=== PATIENT | male | born 1960 | race Hispanic/Latino ===

== ENCOUNTER → 2020-11-13 | Outpatient (CLI) | payer OTHER ==
[~2020-11-13] MED LIST: COVID-19 VACC, MRNA(MODERNA)/PF 100 MCG/0.5 ML VIAL IM ONE
== END ==
LOC: VACCPMC 08:30
DX: Z23 Encounter for immunization (principal); Z20.822 Contact with and (suspected) exposure to COVID-19

== ENCOUNTER → 2020-12-13 | Outpatient (CLI) | payer OTHER | END | DRG 951 | LOC: VACCPMC 09:01 | DX: Z23 Encounter for immunization (principal); Z20.822 Contact with and (suspected) exposure to COVID-19 | CPT/HCPCS: 0012A; 91301 ==

== ENCOUNTER 2021-04-05 12:54 | Outpatient (RCR) | payer BC ==
[2021-04-12] MEDS ORDERED: MOTRIN200 MG PO (16:22)
[2021-04-12] MEDS ORDERED: LIPITOR20 MG PO (16:22)
[2021-04-13] MEDS ORDERED: HYDROCODON-ACE1 EA12 PO (10:46)
== END 2021-04-10 ==
LOC: PT 12:54
PROVIDERS: ATTEND Neurological Surgery
DX: M51.16 Intervertebral disc disorders with radiculopathy, lumbar region (principal)

== ENCOUNTER 2021-04-13 13:13 | Observation (INO) | payer BC ==
[2021-04-12 16:31] LABS: BASOPHILS # (AUTO) 0.1 (0.0-0.1); BASOPHILS % 0.8 % (0.0-1.0); EOSINOPHILS # (AUTO) 0.1 (0.0-0.4); EOSINOPHILS % 1.9 % (0.0-6.0); HEMATOCRIT 43.5 % (38.2-49.6); LYMPHOCYTES # (AUTO) 2.3 (1.0-3.2); LYMPHOCYTES % 31.3 % (18.0-39.1); MEAN CORPUSCULAR HEMOGLOBIN 32.3 pg (28-32); MEAN CORPUSCULAR HGB CONC 34.5 g/dL (31-35); MEAN CORPUSCULAR VOLUME 93.5 fL (81-99); MONOCYTES # (AUTO) 0.6 (0.2-0.8); MONOCYTES % 8.6 % (4.4-11.3); NEUTROPHILS # (AUTO) 4.2 (2.1-6.9); PLATELET COUNT 201 x10e3/uL (140-360); RED BLOOD COUNT 4.65 x10e6/uL (4.3-5.7); RED CELL DISTRIBUTION WIDTH 12.4 % (11.7-14.4)
[2021-04-12 16:38] LABS: INR 0.84; PROTHROMBIN TIME 12.1 seconds (11.9-14.5)
[2021-04-12 16:39] LABS: PARTIAL THROMBOPLASTIN TIME 25.1 seconds (23.8-35.5)
[2021-04-12 16:47] LABS: BLOOD UREA NITROGEN 23 mg/dL (7-26); BUN/CREATININE RATIO 25 (6-25); CALCIUM 8.8 mg/dL (8.4-10.2); CARBON DIOXIDE 24 mmol/L (22-29); CHLORIDE 107 mmol/L (98-107); CREATININE, SERUM 0.92 mg/dL (0.72-1.25); EST GLOMERULAR FILTRATION RATE > 60 ML/MIN (60-); GLUCOSE 84 mg/dL (74-118); SODIUM 139 mmol/L (136-145)
[~2021-04-13] VITALS: Ht 165.1 cm; Wt 83.0 kg
[~2021-04-13 13:13] MED LIST changes: +ACETAMINOPHEN 325 MG TAB PO PRN; +CARISOPRODOL 350 MG TAB PO PRN; +CEFAZOLIN SOD 1 GM/NS 50ML 100 ML IV ONE; -COVID-19 VACC, MRNA(MODERNA)/PF 100 MCG/0.5 ML VIAL IM ONE; +FENTANYL CITRATE/PF 100MCG/2 ML INJ ONE; +HYDROCODON-ACE1 EA12 PO; +HYDROMORPHONE 2MG/ML 2 MG/ML ML IV PRN; +IBUPROFEN 200 MG TAB PO PRN; +LACTATED RINGER'S 1,000 ML IV SCH; +LIPITOR20 MG PO; +MAGNESIUM/ALUMINUM/SIMETHICONE 30 ML UDC PO PRN; +MORPHINE SULFATE 5 MG/ML VIAL IM PRN; +MOTRIN200 MG PO; +ONDANSETRON HCL INJ 2MG/ML 2ML 2 MG/ML VIAL IV PRN; +PROMETHAZINE HCL (IM) 25 MG/ML VIAL IM PRN
[2021-04-13] MEDS ORDERED: OXYCODONE/ACETAMINOPHEN 5-325 1 EACH TABLET PO PRN (13:30)
[2021-04-13] MEDS ORDERED: CEFAZOLIN SOD 1 GM/NS 50ML 50 ML IV SCH (14:00)
[2021-04-13 14:05] VITALS: BP 107/77
[2021-04-13 14:13] VITALS: BP 107/77
[2021-04-13 15:39] VITALS: BP 105/66
[2021-04-13] MEDS ORDERED: GLYCOPYRROLATE INJ 0.2 MG/ML VIAL ONE (17:15)
[2021-04-13] MEDS ORDERED: PROPOFOL IV EMULSION 10 MG/ML 20 ML VIAL ONE (17:15)
[2021-04-13] MEDS ORDERED: DEXAMETHASONE SOD PHOS INJ 4 MG/ML VIAL ONE (17:15)
[2021-04-13] MEDS ORDERED: POVIDONE IODINE 0.05% 0.05 % ML PO ONE (17:15)
[2021-04-13] MEDS ORDERED: LIDOCAINE HCL 2% JELLY 5 ML TUBE ONE (17:15)
[2021-04-13] MEDS ORDERED: ONDANSETRON HCL INJ 2MG/ML 2ML 2 MG/ML VIAL ONE (17:15)
[2021-04-13] MEDS ORDERED: ROCURONIUM BROMIDE 10 MG/ML 5ML VIAL IV ONE (17:15)
[2021-04-13] MEDS ORDERED: NEOSTIGMINE 1 MG/ML 10ML VIAL ONE (17:15)
[2021-04-13] MEDS ORDERED: SEVOFLURANE INHAL SOLN 250 ML PEN BTL ONE (17:15)
[2021-04-13] MEDS ORDERED: LIDOCAINE HCL 2% LOCAL INJ 5 ML SDV VIAL INJ ONE (17:15)
[2021-04-13] MEDS ORDERED: ATORVASTATIN 20 MG TAB PO SCH (21:00)
[2021-04-13] MEDS ORDERED: ZOLPIDEM TARTRATE 5 MG TAB PO PRN (21:00)
== END 2021-04-13 18:00 | disposition home or self-care (01) ==
LOC: OR 13:13 → PACU V 13:17 → MED/SURG 13:19
PROVIDERS: ADMIT Neurological Surgery; ATTEND Neurological Surgery
DX: M51.16 Intervertebral disc disorders with radiculopathy, lumbar region (principal); E78.5 Hyperlipidemia, unspecified; R12 Heartburn; Z01.810 Encounter for preprocedural cardiovascular examination; Z01.812 Encounter for preprocedural laboratory examination; Z01.818 Encounter for other preprocedural examination
CPT/HCPCS: 36415; 63056; 71046; 72020; 80048; 85025; 85610; 85730; 86850; 86900; 88304; 88311; 93005; 99251; G0378; J0690; J1100; J2001 ×2; J2405; J2704; J2710; J3010; J3370